=== PATIENT | female | born 1980 | race Caucasian/White ===

== ENCOUNTER 2021-12-11 08:57 | Emergency (ER) | payer OTHER ==
[~2021-12-11] VITALS: Ht 160 cm; Wt 62.0 kg
[2021-12-11] MEDS ORDERED: KETOROLAC 15MG/ML VIAL IV ONE (09:30)
[2021-12-11] MEDS ORDERED: ONDANSETRON 4MG ODT PO ONE (09:30)
[2021-12-11 09:44] VITALS: BP 113/79
[2021-12-11 10:01] LABS: BASOPHILS % 0.4 % (0.0-2.0); EOSINOPHILS % 0.2 % (0.0-5.0); HEMATOCRIT. 38.4 % (36.0-48.0); HEMOGLOBIN. 12.7 g/dL (12.0-16.0); LYMPHOCYTES % 21.5 % (20.0-50.0); MEAN CORPUSCULAR HEMOGLOBIN 31.9 pg (28.0-32.0); MEAN CORPUSCULAR VOLUME 96.6 fL (81.0-99.0); MEAN PLATELET VOLUME 8.7 fl (7.4-10.4); MONOCYTES % 4.8 % (2.0-8.0); NEUTROPHILS % 73.1 % (40.0-76.0); PLATELET 252 x1000/uL (130-400); RED BLOOD CELL COUNT 3.97 mill/uL (4.2-5.4); RED CELL DISTRIBUTION WIDTH 12.3 % (11.6-14.6)
[2021-12-11 10:05] LABS: CHLORIDE 105 mEq/L (98-107)
[2021-12-11] MEDS ORDERED: FAMO-135 MT (11:14)
== END 2021-12-11 11:24 | disposition home or self-care (01) ==
LOC: ER 08:57
DX: R10.13 Epigastric pain (principal)
CPT/HCPCS: 36415; 80053; 81025; 83690; 84484; 85025; 96374; 99283; J1885; Q0162